=== PATIENT | female | born 1955 | race Hispanic/Latino ===

== ENCOUNTER 2018-08-31 12:53 | Emergency (ER) | payer BC, OTHER ==
[2018-08-31] MEDS ORDERED: ASPIRIN 325 MG TABLET ONE (13:07)
[2018-08-31 13:16] LABS: BASOPHILS % (AUTO) 0.9 % (0.0-5.0); EOSINOPHILS % (AUTO) 1.3 % (0.0-8.0); HEMATOCRIT 37.2 % (36-48); LYMPHOCYTES % (AUTO) 24.2 % (21.0-51.0); MEAN CORPUSCULAR HEMOGLOBIN 29.6 pg (27.0-33.0); MEAN CORPUSCULAR HGB CONC 34.7 g/dL (32.0-36.0); MEAN CORPUSCULAR VOLUME 85.2 fL (79-99); MONOCYTES % (AUTO) 7.4 % (3.0-13.0); NEUTROPHILS % (AUTO) 66.2 % (40.0-77.0); PLATELET COUNT (AUTO) 268 K/uL (130-400); RED BLOOD CELL COUNT(AUTO) 4.37 MIL/uL (4.00-5.50); RED CELL DISTRIBUTION WIDTH 13.1 % (11.0-15.5); WHITE BLOOD COUNT (AUTO) 7.8 K/uL (4.8-10.8)
[2018-08-31 13:21] LABS: CREATININE 0.7 mg/dL (0.5-1.5); POTASSIUM 4.1 mmol/L (3.5-5.1)
[2018-08-31 13:42] LABS: B-TYPE NATRIURETIC PEPTIDE 67 pg/mL (0-100)
[2018-08-31 14:00] LABS: RAPID GROUP A STREP NEGATIVE (NEGATIVE)
== END 2018-08-31 15:57 | disposition home or self-care (01) ==
LOC: EDH 12:53
DX: J20.9 Acute bronchitis, unspecified (principal); R07.9 Chest pain, unspecified; E78.5 Hyperlipidemia, unspecified; F41.9 Anxiety disorder, unspecified; F32.9 Major depressive disorder, single episode, unspecified; Z86.73 Personal history of transient ischemic attack (TIA), and cerebral infarction without residual deficits
CPT/HCPCS: 36415; 71045; 80048; 83880; 84484; 85025; 87804; 87880; 93005

== ENCOUNTER 2018-11-08 06:35 | Day surgery (SDC) | payer OTHER ==
[2018-11-05 11:28] LABS: EOSINOPHILS % (AUTO) 1.5 % (0.0-8.0); HEMATOCRIT 38.3 % (36-48); LYMPHOCYTES % (AUTO) 31.2 % (21.0-51.0); MEAN CORPUSCULAR HEMOGLOBIN 30.2 pg (27.0-33.0); MEAN CORPUSCULAR HGB CONC 34.3 g/dL (32.0-36.0); MONOCYTES % (AUTO) 8.5 % (3.0-13.0); NEUTROPHILS % (AUTO) 57.8 % (40.0-77.0); NUCLEATED RED BLOOD CELLS 0.1 % (0.0-0.19); PLATELET COUNT (AUTO) 271 K/uL (130-400); RED BLOOD CELL COUNT(AUTO) 4.35 MIL/uL (4.00-5.50); RED CELL DISTRIBUTION WIDTH 13.8 % (11.0-15.5); WHITE BLOOD COUNT (AUTO) 6.4 K/uL (4.8-10.8)
[2018-11-05 11:30] VITALS: BP 142/80
[2018-11-05 11:53] LABS: CREATININE 0.9 mg/dL (0.5-1.5); POTASSIUM 3.9 mmol/L (3.5-5.1)
[~2018-11-08] VITALS: Ht 172.7 cm; Wt 117.1 kg
[2018-11-08] VITALS (16 sets, daily range): BP systolic 117–144; BP diastolic 74–90
[~2018-11-08 06:35] MED LIST: CLOP75TA32 PO; LISI-613 PO
[2018-11-08] MEDS ORDERED: LACTATED RINGERS 1000ML 1,000 ML IV ONE (07:31)
[2018-11-08] MEDS ORDERED: DEXAMETHASONE SOD PHOSPHATE 10MG/ML 1ML VIAL ONE (08:03)
[2018-11-08] MEDS ORDERED: LIDOCAINE PF 2% 5ML ABBOJECT ONE (08:03)
[2018-11-08] MEDS ORDERED: PROPOFOL 10 MG/ML 20ML VIAL IV ONE (08:04)
[2018-11-08] MEDS ORDERED: ONDANSETRON HCL 4 MG/2 ML VIAL ONE (08:04)
[2018-11-08] MEDS ORDERED: MIDAZOLAM HCL 1 MG/ML 2ML VIAL ONE (08:04)
[2018-11-08] MEDS ORDERED: FENTANYL CITRATE PF 50 MCG/1 ML 2ML VIAL ONE (08:14)
[2018-11-08] MEDS ORDERED: SUCCINYLCHOLINE 200MG/10ML SYR ONE (08:14)
--- NOTE | 2018-11-08 09:35 | NUR ---
RECEIVED AWAKE ,NO COMPLAINTS,JOSE MIGUEL PAD WITH SCANT AMT OF VAGINAL BLEEDING,,,,INSTRUCTED TO DEEP BREATHE HAND COUGH ,VERBALIZES UNDERSTANDING,,,RETURNS DEMONSTRATION,CALL FLETCHER IN REACH
--- NOTE | 2018-11-08 10:05 | NUR ---
TO BR ,VOIDS 300 MLS OF REDDISH URINE ,NO CLOTS ,DOES WELL,NO DIZZINESS ,ACCOMPANIED TO ROOM ,INSTRUCTIONS TO STEP FATHER AND PT ,VERBALIZE UNDERSTANDING,,,WRITTEN INSTRUCTIONS GIVEN,
--- NOTE | 2018-11-08 10:20 | NUR ---
TO CAR VIA W/C
== END 2018-11-08 10:20 | disposition home or self-care (01) ==
LOC: DAH 06:35
PROVIDERS: ATTEND Specialist
DX: N84.1 Polyp of cervix uteri (principal); N95.0 Postmenopausal bleeding; I10 Essential (primary) hypertension; Z86.73 Personal history of transient ischemic attack (TIA), and cerebral infarction without residual deficits; Z98.890 Other specified postprocedural states; B19.20 Unspecified viral hepatitis C without hepatic coma
CPT/HCPCS: 36415; 58120; 80048; 85025; 86850; 86900; 86901; 88305; A4351; J0330; J1100; J2001; J2250; J2405; J2704; J3010; J7120

== ENCOUNTER 2021-10-30 06:10 | Day surgery (SDC) | payer MEDICARE ==
[2021-10-25 17:02] LABS: BASOPHILS % (AUTO) 0.6 % (0.0-5.0); EOSINOPHILS % (AUTO) 1.9 % (0.0-8.0); HEMATOCRIT 37.2 % (36-48); LYMPHOCYTES % (AUTO) 38.7 % (21.0-51.0); MEAN CORPUSCULAR HEMOGLOBIN 29.9 pg (27.0-33.0); MEAN CORPUSCULAR HGB CONC 33.9 g/dL (32.0-36.0); MEAN CORPUSCULAR VOLUME 88.4 fL (79-99); MONOCYTES % (AUTO) 7.7 % (3.0-13.0); NEUTROPHILS % (AUTO) 50.6 % (40.0-77.0); PLATELET COUNT (AUTO) 315 K/uL (130-400); RED BLOOD CELL COUNT(AUTO) 4.21 MIL/uL (4.00-5.50); RED CELL DISTRIBUTION WIDTH 13.2 % (11.0-15.5); WHITE BLOOD COUNT (AUTO) 8.6 K/uL (4.8-10.8)
[2021-10-25 17:28] LABS: CREATININE 0.8 mg/dL (0.5-1.5); POTASSIUM 4.2 mmol/L (3.5-5.1)
[2021-10-29 09:07] VITALS: BP 134/79
[~2021-10-30] VITALS: Ht 175.3 cm; Wt 114.9 kg
[2021-10-30] VITALS (15 sets, daily range): BP systolic 121–138; BP diastolic 75–92
[~2021-10-30 06:10] MED LIST changes: +FOLIC ACID PO; -LISI-613 PO; +LOSA1TAB42 PO; +PREG75CA75 PO; +vitamin b6 PO; +vitamin d3 PO
[2021-10-30] MEDS ORDERED: PROPOFOL 10 MG/ML 20ML VIAL IV ONE (07:30)
[2021-10-30] MEDS ORDERED: LIDOCAINE PF 100MG/5ML (2%) SYRINGE 5ML ONE (07:30)
[2021-10-30] MEDS ORDERED: FENTANYL CITRATE PF 50 MCG/1 ML 2ML VIAL ONE (07:30)
[2021-10-30] MEDS ORDERED: MIDAZOLAM HCL 1 MG/ML 2ML VIAL ONE (07:30)
[2021-10-30] MEDS ORDERED: ONDANSETRON 4MG INJ ONE (07:32)
[2021-10-30] MEDS ORDERED: PHENYLEPHRINE HCL 10 MG/ML 1ML VIAL IV ONE (07:41)
[2021-10-30] MEDS ORDERED: GLYCOPYRROLATE 1 MG/5 ML SYRINGE ONE (07:43)
[2021-10-30] MEDS ORDERED: CEFAZOLIN SODIUM 1 GM VIAL IVP ONE (08:00)
[2021-10-30] MEDS ORDERED: LACTATED RINGERS 1000ML 1,000 ML IV SCH (08:00)
== END 2021-10-30 09:38 | disposition home or self-care (01) ==
LOC: DAH 06:10
PROVIDERS: ATTEND Specialist
DX: N95.0 Postmenopausal bleeding (principal); N85.00 Endometrial hyperplasia, unspecified; I10 Essential (primary) hypertension; Z86.73 Personal history of transient ischemic attack (TIA), and cerebral infarction without residual deficits; Z79.01 Long term (current) use of anticoagulants
CPT/HCPCS: 36415 ×2; 58120; 80048; 85025; 86850 ×2; 86900 ×2; 86901 ×2; 87635; 93005; A4215; A4221; A4222; A4223; A4351; A4663; A4930; A6260; C9803; J2001; J2250; J2370; J2405; J2704; J3010; J3490; J7120